=== PATIENT | female | born 1950 | race Caucasian/White ===

== ENCOUNTER → 2017-10-31 | Outpatient (CLI) | payer OTHER, MEDICARE ==
[~2017-10-31] MED LIST: CELEXA40 MG; Ecotrin325 MG PO; FEXOFENADINE180 MG PO; KEFLEX500 MG PO; MEDROL DOSEPAK4 MG PO; PREDNISONE20 MG PO; SYNTHROID0.088 MG PO; VICODIN 5/500 505 MG PO; VOLTAREN50 M1 PO
== END | disposition home or self-care (01) ==
LOC: US 10-25 14:43
DX: E04.2 Nontoxic multinodular goiter (principal)

== ENCOUNTER → 2018-08-27 | Outpatient (CLI) | payer OTHER, MEDICARE | END | disposition home or self-care (01) | LOC: RAD 09:04 | DX: R06.02 Shortness of breath (principal); R05 Cough; R09.89 Other specified symptoms and signs involving the circulatory and respiratory systems ==

== ENCOUNTER → 2019-06-18 | Day surgery (SDC) | payer OTHER, MEDICARE ==
[~2019-06-18] VITALS: Ht 149.8 cm; Wt 54.9 kg
--- NOTE | ~2019-06-18 | O ---
[place], [place] OPERATIVE NOTE NAME: RORO MONTAGUE UNIT #: [id number] ROOM: DOCTOR: RAYO MORTON MD BIRTHDATE: [birth year] DOS: 06/18/2019 PREOPERATIVE DIAGNOSIS: Cataract, left eye. POSTOPERATIVE DIAGNOSIS: Cataract, left eye. OPERATION: Extracapsular cataract extraction by phacoemulsification with posterior chamber intraocular lens implantation, left eye. ANESTHESIA: Monitored standby. INTRAOCULAR LENS: Preet, Model #AU00T0, 24.0 diopters, left eye. OPERATIVE FINDINGS AND PROCEDURE: 2% Xylocaine topical anesthetic gel was applied to the eye in the preop area. The patient was taken to the operating room and prepped and draped in the standard fashion for sterile intraocular surgery. A time out procedure was performed verifying correct patient, correct site and corrects lens with Marixa Morton M.D. The operating microscope was swung into position and the lid speculum was inserted. Using a Consuelo paracentesis blade, a paracentesis was made through clear cornea. A mixture of preservative-free lidocaine 4% and preservative-free epinephrine 1:1000 in balanced salt solution was injected into the anterior chamber. Viscoelastic was used to fill the anterior chamber. Using a metal keratome a 2.4 mm self-sealing clear corneal cataract incision was made temporally at the limbus. Using a pre-bent 25 gauge cystotome needle, a standard continuous curvilinear capsulorrhexis was performed. The anterior capsule was removed with forceps. The lens nucleus was hydrodissected and phacoemulsified in the posterior chamber. Cortical material was removed with the irrigation aspiration hand piece and the posterior capsule was then polished with a curet under irrigation. The posterior chamber and capsular bag were filled with viscoelastic. A posterior chamber intraocular lens manufactured by: Preet, Model #AU00T0 and 24.0 diopters in strength were then inserted into the posterior chamber and within the capsular bag using the lens cartridge and injector system. Viscoelastic was removed using the irrigation aspiration handpiece. The anterior chamber was filled with balanced salt solution through the paracentesis. Both the paracentesis site and cataract incisions were hydrated with BSS and verified to be water-tight and self-sealing. Cefuroxime 1 mg/0.1 mL was injected into the anterior chamber through the paracentesis site. The incision checked to be water-tight using a Weck-Laurita sponge. The integrity of the cataract wound and ocular tension were checked. Lid speculum and drapes were removed. The patient was transferred from the operating room to the recovery room in satisfactory condition. [place], [place] OPERATIVE NOTE NAME: RORO MONTAGUE UNIT #: [id number] ROOM: DOCTOR: RAYO MORTON MD BIRTHDATE: [birth year] RAYO MORTON MD CM:OPRECORD:OPERATIVE NOTE 1021 [id number] RAYO MORTON MD 06/18/19 1035 interface
[2019-06-18 09:00] VITALS: BP 159/91
[2019-06-18 10:18] VITALS: BP 130/82
[2019-06-18 10:33] VITALS: BP 138/70
[2019-06-18 10:40] VITALS: BP 151/68
== END | disposition home or self-care (01) ==
LOC: SDC 06-13 08:45
DX: H25.12 Age-related nuclear cataract, left eye (principal); J45.909 Unspecified asthma, uncomplicated; Z98.890 Other specified postprocedural states; Z79.899 Other long term (current) drug therapy; Z88.8 Allergy status to other drugs, medicaments and biological substances; Z98.51 Tubal ligation status; Z82.49 Family history of ischemic heart disease and other diseases of the circulatory system; Z82.3 Family history of stroke; Z80.9 Family history of malignant neoplasm, unspecified

== ENCOUNTER → 2019-06-25 | Day surgery (SDC) | payer OTHER, MEDICARE ==
[~2019-06-25] VITALS: Ht 157.4 cm; Wt 62.6 kg
--- NOTE | ~2019-06-25 | O ---
[place], [place] OPERATIVE NOTE NAME: RORO MONTAGUE UNIT #: [id number] ROOM: DOCTOR: RAYO MORTON MD BIRTHDATE: [birth year] DOS: 06/25/2019 PREOPERATIVE DIAGNOSIS: Cataract, right eye. POSTOPERATIVE DIAGNOSIS: Cataract, right eye. OPERATION: Extracapsular cataract extraction by phacoemulsification with posterior chamber intraocular lens implantation, right eye. ANESTHESIA: Monitored standby. OPERATIVE FINDINGS AND PROCEDURE: 2% Xylocaine topical anesthetic gel was applied to the eye in the preop area. The patient was taken to the operating room and prepped and draped in the standard fashion for sterile intraocular surgery. A time out procedure was performed verifying correct patient, correct site and corrects lens with Marixa Morton M.D. The operating microscope was swung into position and the lid speculum was inserted. Using a Consuelo paracentesis blade, a paracentesis was made through clear cornea. A mixture of preservative free lidocaine 4% and preservative-free epinephrine 1:1000 in balanced salt solution was injected into the anterior chamber. Viscoelastic was used to fill the anterior chamber. Using a metal keratome a 2.4 mm self-sealing clear corneal cataract incision was made temporally at the limbus. Using a pre-bent 25 gauge cystotome needle, a standard continuous curvilinear capsulorrhexis was performed. The anterior capsule was removed with forceps. The lens nucleus was hydrodissected and phacoemulsified in the posterior chamber. Cortical material was removed with the irrigation aspiration hand piece and the posterior capsule was then polished with a curet under irrigation. The posterior chamber and capsular bag were filled with viscoelastic. A posterior chamber intraocular lens manufactured by: Preet, Model #[id number] and 24.0 diopters in strength were then inserted into the posterior chamber and within the capsular bag using the lens cartridge and injector system. Viscoelastic was removed using the irrigation aspiration handpiece. The anterior chamber was filled with balanced salt solution through the paracentesis. Both the paracentesis site and cataract incisions were hydrated with BSS and verified to be water-tight and self-sealing. Cefuroxime 1 mg/0.1 mL was injected into the anterior chamber through the paracentesis site. The incision checked to be water-tight using a Weck-Laurita sponge. The integrity of the cataract wound and ocular tension were checked. Lid speculum and drapes were removed. The patient was transferred from the operating room to the recovery room in satisfactory condition. [place], [place] OPERATIVE NOTE NAME: RORO MONTAGUE UNIT #: [id number] ROOM: DOCTOR: RAYO MORTON MD BIRTHDATE: [birth year] RAYO MORTON MD CM:OPRECORD:OPERATIVE NOTE 1420 [id number] RAYO MORTON MD 06/25/19 1639 interface
[2019-06-25 13:00] VITALS: BP 139/65
[2019-06-25 14:08] VITALS: BP 121/64
[2019-06-25 14:23] VITALS: BP 113/62
[2019-06-25 14:37] VITALS: BP 110/58
== END | disposition home or self-care (01) ==
LOC: SDC 06-23 15:30
DX: H25.11 Age-related nuclear cataract, right eye (principal); F32.9 Major depressive disorder, single episode, unspecified; Z79.899 Other long term (current) drug therapy; Z98.890 Other specified postprocedural states; Z82.49 Family history of ischemic heart disease and other diseases of the circulatory system; Z82.3 Family history of stroke; Z80.9 Family history of malignant neoplasm, unspecified

== ENCOUNTER → 2020-05-04 | Outpatient (CLI) | payer OTHER, MEDICARE | END | disposition home or self-care (01) | LOC: RESCLI 11:24 | DX: M25.511 Pain in right shoulder (principal); G89.29 Other chronic pain; E55.9 Vitamin D deficiency, unspecified; E78.00 Pure hypercholesterolemia, unspecified; E03.9 Hypothyroidism, unspecified; F41.9 Anxiety disorder, unspecified; F32.9 Major depressive disorder, single episode, unspecified; Z91.030 Bee allergy status; I10 Essential (primary) hypertension; Z90.49 Acquired absence of other specified parts of digestive tract; Z98.890 Other specified postprocedural states; Z79.82 Long term (current) use of aspirin; Z79.899 Other long term (current) drug therapy; Z88.8 Allergy status to other drugs, medicaments and biological substances ==

== ENCOUNTER → 2020-05-05 | Outpatient (CLI) | payer OTHER, MEDICARE | END | disposition home or self-care (01) | LOC: INJECTION 11:34 → RESCLI 11:34 → INJECTION 05-18 11:34 | DX: M25.511 Pain in right shoulder (principal) ==

== ENCOUNTER → 2020-05-21 | Outpatient (CLI) | payer OTHER, MEDICARE | END | disposition home or self-care (01) | LOC: MRI 03:40 | DX: M25.511 Pain in right shoulder (principal) ==

== ENCOUNTER → 2021-05-18 | Outpatient (CLI) | payer OTHER | END | disposition home or self-care (01) | LOC: RESCLI 12:59 | PROVIDERS: ATTEND Internal Medicine Nephrology | DX: I49.8 Other specified cardiac arrhythmias (principal); I51.7 Cardiomegaly; I25.2 Old myocardial infarction; R42 Dizziness and giddiness; R06.02 Shortness of breath; E03.9 Hypothyroidism, unspecified; Z79.82 Long term (current) use of aspirin; Z79.899 Other long term (current) drug therapy; Z98.890 Other specified postprocedural states; Z98.51 Tubal ligation status ==

== ENCOUNTER → 2021-07-20 | Outpatient (CLI) | payer OTHER | END | disposition home or self-care (01) | LOC: CARD 00:08 | PROVIDERS: ATTEND Internal Medicine Cardiovascular Disease | DX: R07.2 Precordial pain (principal); R94.39 Abnormal result of other cardiovascular function study ==

== ENCOUNTER → 2021-09-21 | Outpatient (CLI) | payer OTHER | END | disposition home or self-care (01) | LOC: RESCLI 00:55 | PROVIDERS: ATTEND Internal Medicine Nephrology | DX: J30.2 Other seasonal allergic rhinitis (principal); E03.9 Hypothyroidism, unspecified; Z91.038 Other insect allergy status; I10 Essential (primary) hypertension; F32.2 Major depressive disorder, single episode, severe without psychotic features; F32.0 Major depressive disorder, single episode, mild; Z79.899 Other long term (current) drug therapy; Z98.890 Other specified postprocedural states ==

== ENCOUNTER → 2021-12-21 | Outpatient (CLI) | payer MEDICARE, MEDICAID | END | disposition home or self-care (01) | LOC: RESCLI 13:44 | PROVIDERS: ATTEND Internal Medicine Nephrology | DX: J30.2 Other seasonal allergic rhinitis (principal); E03.9 Hypothyroidism, unspecified; I10 Essential (primary) hypertension; Z91.038 Other insect allergy status; F32.0 Major depressive disorder, single episode, mild; E55.9 Vitamin D deficiency, unspecified; Z91.030 Bee allergy status; Z88.8 Allergy status to other drugs, medicaments and biological substances; Z79.82 Long term (current) use of aspirin; Z79.899 Other long term (current) drug therapy; Z98.890 Other specified postprocedural states ==

== ENCOUNTER → 2022-01-03 | Outpatient (CLI) | payer OTHER, MEDICAID ==
[2022-01-03 09:14] LABS: BASO # 0.1 10*3/uL (0.0-0.1); BASO % 1.4 % (0.0-1.0); EOS # 0.3 10*3/uL (0.0-0.4); EOS % 5.4 % (1.0-4.0); HEMATOCRIT 42.1 % (37.0-47.0); LYMPH # 2.1 10*3/uL (1.3-4.4); LYMPH % 38.5 % (27.0-41.0); MEAN CELL VOLUME 87.3 fl (81.0-99.0); MEAN CORPUSCULAR HGB 28.6 pg (27.0-31.0); MEAN CORPUSCULAR HGB CONC 32.8 g/dl (33.0-37.0); MEAN PLATELET VOLUME 9.9 fl (9.6-12.3); MONO # 0.4 10*3/uL (0.1-1.0); MONO % 7.4 % (3.0-9.0); NEUT # 2.6 10*3/uL (2.3-7.9); NEUT % 46.9 % (47.0-73.0); PLATELET COUNT AUTOMATED 272 10*3/uL (130-400); RED BLOOD COUNT 4.82 10*6/uL (4.10-5.10); RED CELL DISTRI WIDTH 12.7 % (0-14.5); WHITE BLOOD COUNT 5.6 10*3/uL (4.8-10.8)
[2022-01-03 09:35] LABS: CHLORIDE 108 mmol/L (98-107); SODIUM 139 mmol/L (136-145)
[2022-01-03 09:44] LABS: VITAMIN D, 25-HYDROXY 22.5 ng/mL (30-100)
[2022-01-03 09:56] LABS: ALKALINE PHOSPHATASE 78 U/L (45-117); BUN 15 mg/dl (7-24); CHOLESTEROL 218 mg/dL (<200); CREATININE 0.72 mg/dL (0.55-1.02); LDL CHOLESTEROL 121 mg/dL (9-159); SGOT/AST 11 IU/L (3-35); SGPT/ALT 21 U/L (12-78); TOTAL PROTEIN 7.4 gm/dL (6.4-8.2); TRIGLYCERIDES 238 mg/dl (<150)
[2022-01-03 10:18] LABS: FREE T4 1.12 ng/dl (0.76-1.46)
== END ==
LOC: LAB 08:33 → RAD 14:00
PROVIDERS: Hospitalist; ATTEND Family Medicine
DX: I10 Essential (primary) hypertension (principal); E55.9 Vitamin D deficiency, unspecified; M81.0 Age-related osteoporosis without current pathological fracture

== ENCOUNTER → 2022-03-15 | Outpatient (CLI) | payer OTHER, MEDICAID | END | disposition home or self-care (01) | LOC: RESCLI 13:57 | PROVIDERS: ATTEND Internal Medicine Nephrology | DX: J30.2 Other seasonal allergic rhinitis (principal); E03.9 Hypothyroidism, unspecified; Z91.038 Other insect allergy status; I10 Essential (primary) hypertension; F32.0 Major depressive disorder, single episode, mild; E55.9 Vitamin D deficiency, unspecified; Z13.820 Encounter for screening for osteoporosis; Z79.899 Other long term (current) drug therapy ==

== ENCOUNTER → 2022-07-24 | Outpatient (CLI) | payer OTHER, MEDICAID | END | disposition home or self-care (01) | LOC: RESCLI 04:59 | PROVIDERS: ATTEND Internal Medicine | DX: M81.0 Age-related osteoporosis without current pathological fracture (principal); E78.5 Hyperlipidemia, unspecified; F32.9 Major depressive disorder, single episode, unspecified; R06.02 Shortness of breath; R00.2 Palpitations; F41.9 Anxiety disorder, unspecified; J30.2 Other seasonal allergic rhinitis; E03.9 Hypothyroidism, unspecified; I10 Essential (primary) hypertension; U07.1 COVID-19; Z79.899 Other long term (current) drug therapy; Z79.82 Long term (current) use of aspirin; Z88.8 Allergy status to other drugs, medicaments and biological substances ==

== ENCOUNTER → 2022-07-26 | Outpatient (CLI) | payer OTHER, MEDICAID | END | disposition home or self-care (01) | LOC: RAD 09:33 | PROVIDERS: ATTEND Emergency Medicine | DX: R06.02 Shortness of breath (principal) ==

== ENCOUNTER → 2022-09-11 | Outpatient (CLI) | payer OTHER, MEDICAID | END | disposition home or self-care (01) | LOC: RESCLI 02:36 | PROVIDERS: ATTEND Internal Medicine | DX: M81.0 Age-related osteoporosis without current pathological fracture (principal); E55.9 Vitamin D deficiency, unspecified; E04.1 Nontoxic single thyroid nodule; E03.9 Hypothyroidism, unspecified; J30.2 Other seasonal allergic rhinitis; Z91.038 Other insect allergy status; E78.5 Hyperlipidemia, unspecified; F41.9 Anxiety disorder, unspecified; F32.9 Major depressive disorder, single episode, unspecified; Z98.890 Other specified postprocedural states; Z88.8 Allergy status to other drugs, medicaments and biological substances; Z79.82 Long term (current) use of aspirin; Z79.899 Other long term (current) drug therapy ==

== ENCOUNTER → 2022-09-18 | Outpatient (CLI) | payer OTHER, MEDICAID ==
[2022-09-18 10:50] LABS: BASO # 0.1 10*3/uL (0.0-0.1); BASO % 1.3 % (0.0-1.0); EOS # 0.2 10*3/uL (0.0-0.4); EOS % 4.3 % (1.0-4.0); HEMATOCRIT 42.6 % (37.0-47.0); LYMPH # 1.9 10*3/uL (1.3-4.4); LYMPH % 33.9 % (27.0-41.0); MEAN CELL VOLUME 87.5 fl (81.0-99.0); MEAN CORPUSCULAR HGB CONC 33.1 g/dl (33.0-37.0); MEAN PLATELET VOLUME 9.9 fl (9.6-12.3); MONO # 0.4 10*3/uL (0.1-1.0); MONO % 7.2 % (3.0-9.0); NEUT # 2.9 10*3/uL (2.3-7.9); NEUT % 52.9 % (47.0-73.0); PLATELET COUNT AUTOMATED 287 10*3/uL (130-400); RED BLOOD COUNT 4.87 10*6/uL (4.10-5.10); RED CELL DISTRI WIDTH 12.3 % (0-14.5); WHITE BLOOD COUNT 5.5 10*3/uL (4.8-10.8)
[2022-09-18 11:09] LABS: ALKALINE PHOSPHATASE 62 U/L (45-117); BUN 16 mg/dl (7-24); CHLORIDE 108 mmol/L (98-107); CHOLESTEROL 213 mg/dL (<200); CREATININE 0.67 mg/dL (0.55-1.02); POTASSIUM 4.3 mmol/L (3.5-5.1); SGOT/AST 13 IU/L (3-35); SGPT/ALT 22 U/L (12-78); SODIUM 142 mmol/L (136-145); TOTAL PROTEIN 7.8 gm/dL (6.4-8.2); TRIGLYCERIDES 116 mg/dl (<150)
[2022-09-18 11:11] LABS: LDL CHOLESTEROL 130 mg/dL (9-159)
[2022-09-18 11:51] LABS: FREE T4 1.05 ng/dl (0.76-1.46)
== END | disposition home or self-care (01) ==
LOC: LAB 10:20
PROVIDERS: Student in an Organized Health Care Education/Training Program; ATTEND Internal Medicine
DX: E78.00 Pure hypercholesterolemia, unspecified (principal); E55.9 Vitamin D deficiency, unspecified; E03.9 Hypothyroidism, unspecified

== ENCOUNTER → 2023-01-08 | Outpatient (CLI) | payer OTHER, MEDICAID | END | disposition home or self-care (01) | LOC: RESCLI 11:56 | PROVIDERS: ATTEND Internal Medicine | DX: E03.9 Hypothyroidism, unspecified (principal); F32.A Depression, unspecified; F41.9 Anxiety disorder, unspecified; Z88.8 Allergy status to other drugs, medicaments and biological substances; Z98.890 Other specified postprocedural states; Z79.899 Other long term (current) drug therapy ==

== ENCOUNTER → 2023-01-22 | Outpatient (CLI) | payer OTHER, MEDICAID | END | disposition home or self-care (01) | LOC: US 00:32 | PROVIDERS: ATTEND Student in an Organized Health Care Education/Training Program | DX: E04.1 Nontoxic single thyroid nodule (principal) ==

== ENCOUNTER → 2023-02-15 | Outpatient (CLI) | payer OTHER, MEDICAID ==
[2023-02-15 10:58] LABS: FREE T4 1.1 ng/dl (0.89-1.76)
== END | disposition home or self-care (01) ==
LOC: LAB 00:16 → RAD 09:00 → LAB 09:00
PROVIDERS: Student in an Organized Health Care Education/Training Program; ATTEND Specialist
DX: K21.00 Gastro-esophageal reflux disease with esophagitis, without bleeding (principal); R13.10 Dysphagia, unspecified; E03.9 Hypothyroidism, unspecified

== ENCOUNTER → 2023-04-03 | Outpatient (CLI) | payer OTHER, MEDICAID ==
[2023-04-03 10:59] LABS: HEMATOCRIT 41.3 % (37.0-47.0); MEAN CELL VOLUME 89.6 fl (81.0-99.0); MEAN CORPUSCULAR HGB 28.6 pg (27.0-31.0); MEAN PLATELET VOLUME 9.5 fl (9.6-12.3); RED BLOOD COUNT 4.61 10*6/uL (4.10-5.10); RED CELL DISTRI WIDTH 12.8 % (0-14.5); WHITE BLOOD COUNT 4.8 10*3/uL (4.8-10.8)
[2023-04-03 11:44] LABS: ALKALINE PHOSPHATASE 54 U/L (46-116); BUN 16 mg/dl (9-23); CHLORIDE 106 mmol/L (98-107); CHOLESTEROL 223 mg/dL (<200); FREE T4 1.16 ng/dl (0.89-1.76); LDL CHOLESTEROL 140 mg/dL (9-159); SGPT/ALT 10 U/L (10-49); THYROID STIM HORMONE (HS) 0.721 uIU/ml (0.550-4.780); TOTAL PROTEIN 7.3 gm/dL (6.0-8.0); TRIGLYCERIDES 141 mg/dl (<150)
[2023-04-04 04:06] LABS: THYROID PEROXIDASE (TPO) AB 94 IU/mL (0-34)
[2023-04-04 15:07] LABS: THYROGLOBULIN ANTIBODY <1.0 IU/mL (0.0-0.9)
== END | disposition home or self-care (01) ==
LOC: LAB 10:37
PROVIDERS: ATTEND Family Medicine
DX: I10 Essential (primary) hypertension (principal); E03.9 Hypothyroidism, unspecified; M81.0 Age-related osteoporosis without current pathological fracture

== ENCOUNTER → 2023-04-23 | Day surgery (SDC) | payer OTHER, MEDICAID ==
[~2023-04-23] VITALS: Ht 149.8 cm; Wt 59.4 kg
[~2023-04-23] MED LIST changes: +Carafate1 GM PO; +METOPROLOL SUCC25 M2 PO; +OMEPRAZOLE MAGN20 MG PO
[2023-04-23 09:20] VITALS: BP 149/65
[2023-04-23 10:03] VITALS: BP 111/50
[2023-04-23 10:18] VITALS: BP 120/61
[2023-04-23 10:33] VITALS: BP 120/61
== END ==
LOC: SDC 04-19 14:00
PROVIDERS: ATTEND Surgery
DX: R13.10 Dysphagia, unspecified (principal); I10 Essential (primary) hypertension; K21.9 Gastro-esophageal reflux disease without esophagitis; M81.0 Age-related osteoporosis without current pathological fracture; Z98.890 Other specified postprocedural states

== ENCOUNTER → 2023-04-24 | Outpatient (CLI) | payer OTHER, MEDICAID | END | disposition home or self-care (01) | LOC: CARD 01:03 | PROVIDERS: ATTEND Family Medicine | DX: I05.8 Other rheumatic mitral valve diseases (principal); Q21.10 Atrial septal defect, unspecified ==

== ENCOUNTER → 2023-04-30 | Outpatient (CLI) | payer OTHER, MEDICAID ==
[2023-04-30 09:55] LABS: BUN 21 mg/dl (9-23)
== END | disposition home or self-care (01) ==
LOC: LAB 09:14
PROVIDERS: ATTEND Specialist
DX: M50.90 Cervical disc disorder, unspecified, unspecified cervical region (principal)

== ENCOUNTER → 2023-05-07 | Outpatient (CLI) | payer OTHER, MEDICAID | END | disposition home or self-care (01) | LOC: CT 00:10 | PROVIDERS: ATTEND Specialist | DX: M47.812 Spondylosis without myelopathy or radiculopathy, cervical region (principal); M48.02 Spinal stenosis, cervical region ==

== ENCOUNTER → 2023-09-13 | Outpatient (CLI) | payer OTHER, MEDICAID ==
[2023-09-13 11:16] LABS: ALKALINE PHOSPHATASE 53 U/L (46-116); BUN 14 mg/dl (9-23); CHLORIDE 105 mmol/L (98-107); CHOLESTEROL 229 mg/dL (<200); FREE T4 0.95 ng/dl (0.89-1.76); LDL CHOLESTEROL 131 mg/dL (9-159); POTASSIUM 3.9 mmol/L (3.4-5.1); SGPT/ALT 13 U/L (5-49); TOTAL PROTEIN 7.1 gm/dL (6.0-8.0); TRIGLYCERIDES 199 mg/dl (<150)
== END | disposition home or self-care (01) ==
LOC: LAB 08:55
PROVIDERS: ATTEND Internal Medicine
DX: E78.5 Hyperlipidemia, unspecified (principal); E03.9 Hypothyroidism, unspecified; E55.9 Vitamin D deficiency, unspecified; E66.3 Overweight

== ENCOUNTER → 2023-11-13 | Outpatient (CLI) | payer OTHER, MEDICAID | END | disposition home or self-care (01) | LOC: US 10:31 | PROVIDERS: ATTEND Internal Medicine | DX: E04.1 Nontoxic single thyroid nodule (principal); E03.9 Hypothyroidism, unspecified ==

== ENCOUNTER → 2023-12-17 | Outpatient (CLI) | payer OTHER, MEDICAID ==
[2023-12-17 12:25] LABS: BASO # 0.1 10*3/uL (0.0-0.1); BASO % 0.8 % (0.0-1.0); EOS # 0.2 10*3/uL (0.0-0.4); EOS % 3.7 % (1.0-4.0); HEMATOCRIT 40.2 % (37.0-47.0); LYMPH # 1.9 10*3/uL (1.3-4.4); LYMPH % 30.9 % (27.0-41.0); MEAN CELL VOLUME 88.2 fl (81.0-99.0); MEAN CORPUSCULAR HGB 28.3 pg (27.0-31.0); MEAN CORPUSCULAR HGB CONC 32.1 g/dl (33.0-37.0); MEAN PLATELET VOLUME 9.5 fl (9.6-12.3); MONO # 0.4 10*3/uL (0.1-1.0); MONO % 6.7 % (3.0-9.0); NEUT # 3.5 10*3/uL (2.3-7.9); NEUT % 57.7 % (47.0-73.0); PLATELET COUNT AUTOMATED 266 10*3/uL (130-400); RED BLOOD COUNT 4.56 10*6/uL (4.10-5.10); RED CELL DISTRI WIDTH 12.4 % (0-14.5)
[2023-12-17 12:41] LABS: BILIRUBIN Negative (Negative); BLOOD 1+ (Negative); CLARITY Clear (Clear); COLOR Yellow (Yellow); GLUCOSE Negative (Negative); KETONE Negative (Negative); LEUKO ESTERASE Negative (Negative); NITRITE Negative (Negative); PH 5.5 (4.5-8.0); SPECIFIC GRAVITY 1.015 (1.001-1.030); UROBILINOGEN 0.2 E.U./dl (0.0-1.0)
[2023-12-17 12:53] LABS: ALKALINE PHOSPHATASE 48 U/L (46-116); BUN 15 mg/dl (9-23); CHLORIDE 106 mmol/L (98-107); LIPASE 31 U/L (12-53); POTASSIUM 3.7 mmol/L (3.4-5.1); SGPT/ALT 8 U/L (5-49); TOTAL PROTEIN 7.1 gm/dL (6.0-8.0)
[2023-12-17 12:55] LABS: EPITHELIAL CELLS 0-2; WBC 0-2 wbc/hpf (0-5)
== END ==
LOC: LAB 11:58
PROVIDERS: ATTEND Family Medicine
DX: R10.12 Left upper quadrant pain (principal); I10 Essential (primary) hypertension; E03.9 Hypothyroidism, unspecified; Z90.49 Acquired absence of other specified parts of digestive tract

== ENCOUNTER → 2023-12-21 | Outpatient (CLI) | payer OTHER, MEDICAID | END | disposition home or self-care (01) | LOC: CT 13:00 | PROVIDERS: ATTEND Family Medicine | DX: N20.0 Calculus of kidney (principal); K57.30 Diverticulosis of large intestine without perforation or abscess without bleeding; Z90.49 Acquired absence of other specified parts of digestive tract ==

== ENCOUNTER 2023-12-31 02:16 | Inpatient (IN) | payer OTHER, MEDICAID ==
[~2023-12-31] VITALS: Ht 149.8 cm; Wt 56.7 kg
[~2023-12-31 02:16] MED LIST changes: -SYNTHROID0.088 MG PO; +Synthroid,Levo75 MCG PO
[2023-12-31 02:40] LABS: BASO % 0.6 % (0.0-1.0); EOS # 0.2 10*3/uL (0.0-0.4); EOS % 3.3 % (1.0-4.0); LYMPH # 2.6 10*3/uL (1.3-4.4); LYMPH % 38.7 % (27.0-41.0); MEAN CELL VOLUME 86.3 fl (81.0-99.0); MEAN CORPUSCULAR HGB 28.1 pg (27.0-31.0); MEAN CORPUSCULAR HGB CONC 32.6 g/dl (33.0-37.0); MEAN PLATELET VOLUME 9.8 fl (9.6-12.3); MONO # 0.5 10*3/uL (0.1-1.0); MONO % 7.7 % (3.0-9.0); NEUT # 3.3 10*3/uL (2.3-7.9); NEUT % 49.5 % (47.0-73.0); PLATELET COUNT AUTOMATED 254 10*3/uL (130-400); RED BLOOD COUNT 4.52 10*6/uL (4.10-5.10); RED CELL DISTRI WIDTH 12.3 % (0-14.5); WHITE BLOOD COUNT 6.6 10*3/uL (4.8-10.8)
[2023-12-31 03:00] VITALS: BP 161/90
[2023-12-31 03:00] LABS: BUN 17 mg/dl (9-23); CHLORIDE 106 mmol/L (98-107); POTASSIUM 3.4 mmol/L (3.4-5.1)
[2023-12-31 03:08] LABS: BILIRUBIN Negative (Negative); BLOOD Negative (Negative); CLARITY Clear (Clear); COLOR Yellow (Yellow); GLUCOSE Negative (Negative); KETONE Trace (Negative); LEUKO ESTERASE Trace (Negative); NITRITE Negative (Negative); PH 7.5 (4.5-8.0); SPECIFIC GRAVITY 1.015 (1.001-1.030)
[2023-12-31 03:21] LABS: BACTERIA 1+; MUCOUS 1+; RBC 0-2 rbc/hpf (0-2)
[2023-12-31] MEDS ORDERED: TRAZODONE50 MG PO (05:27)
[2023-12-31] MEDS ORDERED: ACETAMINOPHEN 325 MG TAB PO ONE (06:20)
[2023-12-31 06:31] VITALS: BP 168/72
[2023-12-31] MEDS ORDERED: Magnesium Hydroxide 30 ML UDC PO PRN (07:45)
[2023-12-31] MEDS ORDERED: ACETAMINOPHEN 325 MG TAB PO PRN (07:45)
[2023-12-31 09:13] VITALS: BP 134/57
[2023-12-31] MEDS ORDERED: Enoxaparin Sodium 40 MG/0.4 ML SYR SC SCH (10:00)
[2023-12-31] MEDS ORDERED: Regadenoson 0.4 MG/5 ML SYR IV ONE (12:05)
[2023-12-31 20:00] VITALS: BP 141/60
[2024-01-01] VITALS: BP 132/61
[2024-01-01] MEDS ORDERED: Levothyroxine Sodium 75 MCG TAB PO SCH ×2 (06:00→10:00)
[2024-01-01 06:09] LABS: BASO % 0.7 % (0.0-1.0); EOS # 0.2 10*3/uL (0.0-0.4); EOS % 4.1 % (1.0-4.0); HEMATOCRIT 37.8 % (37.0-47.0); LYMPH # 2.4 10*3/uL (1.3-4.4); LYMPH % 43.7 % (27.0-41.0); MEAN CELL VOLUME 87.5 fl (81.0-99.0); MEAN CORPUSCULAR HGB 29.4 pg (27.0-31.0); MEAN CORPUSCULAR HGB CONC 33.6 g/dl (33.0-37.0); MEAN PLATELET VOLUME 10.1 fl (9.6-12.3); MONO # 0.4 10*3/uL (0.1-1.0); NEUT # 2.3 10*3/uL (2.3-7.9); NEUT % 43.3 % (47.0-73.0); PLATELET COUNT AUTOMATED 247 10*3/uL (130-400); RED BLOOD COUNT 4.32 10*6/uL (4.10-5.10); RED CELL DISTRI WIDTH 12.6 % (0-14.5); WHITE BLOOD COUNT 5.4 10*3/uL (4.8-10.8)
[2024-01-01 06:38] LABS: VITAMIN D, 25-HYDROXY 35.6 ng/mL (30-100)
[2024-01-01 06:39] LABS: ALKALINE PHOSPHATASE 44 U/L (46-116); BUN 13 mg/dl (9-23); CHLORIDE 107 mmol/L (98-107); CHOLESTEROL 185 mg/dL (<200); FREE T4 0.98 ng/dl (0.89-1.76); LDL CHOLESTEROL 102 mg/dL (9-159); POTASSIUM 3.7 mmol/L (3.4-5.1); SGPT/ALT < 7 U/L (5-49); TOTAL PROTEIN 6.4 gm/dL (6.0-8.0); TRIGLYCERIDES 192 mg/dl (<150)
[2024-01-01] MEDS ORDERED: Regadenoson 0.4 MG/5 ML SYR IV ONE (06:42)
[2024-01-01 08:00] VITALS: BP 136/54
[2024-01-01] MEDS ORDERED: EZETIMIBE 10 MG TAB PO SCH (10:00)
[2024-01-01 12:00] VITALS: BP 162/74
[2024-01-01 16:00] VITALS: BP 121/79
[2024-01-01] MEDS ORDERED: LISINOPRIL10 M1 PO (16:43)
[2024-01-02] MEDS ORDERED: Levothyroxine Sodium 75 MCG TAB PO SCH (06:00)
== END 2024-01-01 19:16 | disposition home or self-care (01) | DRG 74 ==
LOC: ED 02:16 → 4E 06:13 → EDHOLD 06:13 → 4E 15:40
PROVIDERS: Internal Medicine; Student in an Organized Health Care Education/Training Program; ADMIT Family Medicine; ATTEND Family Medicine
PROC: 4A02XM4 Measurement of Cardiac Total Activity, External Approach (ICD-10-PCS; principal; 2024-01-01)
PROC: 3E073KZ Introduction of Other Diagnostic Substance into Coronary Artery, Percutaneous Approach (ICD-10-PCS; 2024-01-01)
DX: G90.8 Other disorders of autonomic nervous system (principal); I95.1 Orthostatic hypotension; R00.1 Bradycardia, unspecified; R73.9 Hyperglycemia, unspecified; E03.9 Hypothyroidism, unspecified; E78.2 Mixed hyperlipidemia; W18.39XA Other fall on same level, initial encounter; E78.5 Hyperlipidemia, unspecified; F41.9 Anxiety disorder, unspecified; I25.10 Atherosclerotic heart disease of native coronary artery without angina pectoris; R07.89 Other chest pain; N18.31 Chronic kidney disease, stage 3a; I12.9 Hypertensive chronic kidney disease with stage 1 through stage 4 chronic kidney disease, or unspecified chronic kidney disease; Y93.89 Activity, other specified; Z79.899 Other long term (current) drug therapy; Y92.89 Other specified places as the place of occurrence of the external cause; Y99.8 Other external cause status

== ENCOUNTER → 2024-01-23 | Outpatient (CLI) | payer OTHER, MEDICAID ==
[~2024-01-23] MED LIST changes: +LISINOPRIL10 M1 PO; +TRAZODONE50 MG PO
[2024-01-29 16:08] LABS: SACCHAROMYCES CEREVISIAE IGA <20.0 Units (0.0-24.9)
== END | disposition home or self-care (01) ==
LOC: LAB 15:33
PROVIDERS: Nurse Practitioner Family; ATTEND Internal Medicine Gastroenterology
DX: K52.9 Noninfective gastroenteritis and colitis, unspecified (principal)

== ENCOUNTER → 2024-02-05 | Outpatient (CLI) | payer OTHER, MEDICAID ==
[2024-02-05 09:22] LABS: ALKALINE PHOSPHATASE 44 U/L (46-116); BUN 12 mg/dl (9-23); CHLORIDE 106 mmol/L (98-107); CHOLESTEROL 182 mg/dL (<200); LDL CHOLESTEROL 99 mg/dL (9-159); POTASSIUM 3.5 mmol/L (3.4-5.1); TOTAL PROTEIN 6.8 gm/dL (6.0-8.0); TRIGLYCERIDES 158 mg/dl (<150)
[2024-02-05 09:23] LABS: SGPT/ALT < 7 U/L (5-49)
== END | disposition home or self-care (01) ==
LOC: LAB 07:45
PROVIDERS: ATTEND Internal Medicine
DX: E03.9 Hypothyroidism, unspecified (principal); E55.9 Vitamin D deficiency, unspecified; E78.5 Hyperlipidemia, unspecified; E66.3 Overweight

== ENCOUNTER 2024-07-21 08:27 | Emergency (ER) | payer OTHER, MEDICAID ==
[~2024-07-21] VITALS: Ht 162.5 cm; Wt 50.3 kg
[2024-07-21 08:40] VITALS: BP 147/66
[2024-07-21] MEDS ORDERED: [UNRECOGNIZED DRUG - OTHER] IJ ONE (09:25)
[2024-07-21] MEDS ORDERED: TRIAMCINOLONE ACETONIDE IM ONE (09:25)
[2024-07-21] MEDS ORDERED: TRIAMCINOLONE ACETONIDE 40 MG/ML VIAL IM ONE (09:45)
== END 2024-07-21 09:30 | disposition home or self-care (01) ==
LOC: ED 08:27
DX: L23.7 Allergic contact dermatitis due to plants, except food (principal); F41.9 Anxiety disorder, unspecified; I25.10 Atherosclerotic heart disease of native coronary artery without angina pectoris; E78.5 Hyperlipidemia, unspecified; I10 Essential (primary) hypertension; R73.9 Hyperglycemia, unspecified; E03.9 Hypothyroidism, unspecified; K21.9 Gastro-esophageal reflux disease without esophagitis; F17.200 Nicotine dependence, unspecified, uncomplicated; Z90.49 Acquired absence of other specified parts of digestive tract; Z98.890 Other specified postprocedural states; Z98.51 Tubal ligation status

== ENCOUNTER → 2024-08-14 | Outpatient (CLI) | payer OTHER, MEDICAID ==
[2024-08-14 09:53] LABS: FREE T4 1.17 ng/dl (0.89-1.76); TOTAL PROTEIN 6.7 gm/dL (6.0-8.0)
== END | disposition home or self-care (01) ==
LOC: LAB 08:25
PROVIDERS: ATTEND Internal Medicine
DX: E55.9 Vitamin D deficiency, unspecified (principal); E03.9 Hypothyroidism, unspecified; E78.5 Hyperlipidemia, unspecified

== ENCOUNTER → 2025-02-09 | Outpatient (CLI) | payer OTHER, MEDICAID ==
[2025-02-09 09:53] LABS: ALKALINE PHOSPHATASE 43 U/L (46-116); BUN 16 mg/dl (9-23); CHLORIDE 106 mmol/L (98-107); CHOLESTEROL 211 mg/dL (<200); FREE T4 1.09 ng/dl (0.89-1.76); LDL CHOLESTEROL 125 mg/dL (9-159); POTASSIUM 4.4 mmol/L (3.4-5.1); SGPT/ALT 10 U/L (5-49); TOTAL PROTEIN 6.9 gm/dL (6.0-8.0); TRIGLYCERIDES 125 mg/dl (<150)
== END | disposition home or self-care (01) ==
LOC: LAB 03:10 → US 09:00
PROVIDERS: ATTEND Internal Medicine
DX: E04.1 Nontoxic single thyroid nodule (principal); E03.9 Hypothyroidism, unspecified; E55.9 Vitamin D deficiency, unspecified; E78.5 Hyperlipidemia, unspecified

== ENCOUNTER → 2025-04-01 | Outpatient (CLI) | payer OTHER, MEDICAID | END | disposition home or self-care (01) | LOC: RAD 14:44 | PROVIDERS: ATTEND Family Medicine | DX: M47.26 Other spondylosis with radiculopathy, lumbar region (principal) ==

== ENCOUNTER → 2025-07-17 | Outpatient (CLI) | payer OTHER, MEDICAID ==
[2025-07-17 12:02] LABS: FREE T4 1.14 ng/dl (0.89-1.76); LDL CHOLESTEROL 133.0 mg/dL (9-159); SGPT/ALT 11.0 U/L (5-49)
== END | disposition home or self-care (01) ==
LOC: LAB 10:51
PROVIDERS: ATTEND Internal Medicine
DX: E78.5 Hyperlipidemia, unspecified (principal); E03.9 Hypothyroidism, unspecified; E55.9 Vitamin D deficiency, unspecified

== ENCOUNTER → 2025-08-31 | Outpatient (CLI) | payer OTHER, MEDICAID | END | disposition home or self-care (01) | LOC: RAD 14:12 | PROVIDERS: ATTEND Nurse Practitioner Family | DX: J98.4 Other disorders of lung (principal); R05.9 Cough, unspecified ==

== ENCOUNTER → 2025-09-05 | Outpatient (CLI) | payer OTHER, MEDICAID | END | disposition home or self-care (01) | LOC: CT 00:51 | PROVIDERS: ATTEND Nurse Practitioner Family | DX: R91.1 Solitary pulmonary nodule (principal); J84.10 Pulmonary fibrosis, unspecified; R91.8 Other nonspecific abnormal finding of lung field; I25.10 Atherosclerotic heart disease of native coronary artery without angina pectoris; I70.0 Atherosclerosis of aorta; M47.814 Spondylosis without myelopathy or radiculopathy, thoracic region; M19.012 Primary osteoarthritis, left shoulder; M19.011 Primary osteoarthritis, right shoulder ==

== ENCOUNTER → 2025-10-23 | Outpatient (CLI) | payer OTHER, MEDICAID ==
[2025-10-23 09:02] LABS: FREE T4 1.17 ng/dl (0.89-1.76); LDL CHOLESTEROL 115.0 mg/dL (9-159); SGPT/ALT 8.0 U/L (5-49)
== END | disposition home or self-care (01) ==
LOC: LAB 08:05
PROVIDERS: ATTEND Internal Medicine
DX: E78.5 Hyperlipidemia, unspecified (principal); E03.9 Hypothyroidism, unspecified; E55.9 Vitamin D deficiency, unspecified